=== PATIENT | female | born 1950 | race Two or more races ===

== ENCOUNTER 2024-01-23 16:25 | Emergency (ER) | payer OTHER ==
[~2024-01-23] VITALS: Ht 154.9 cm; Wt 64.4 kg
[2024-01-23] MEDS ORDERED: LANTUS SOL100 UNIT/1 (16:49)
[2024-01-23] MEDS ORDERED: LEVOTHYROXINE25 MCG PO (16:49)
[2024-01-23] MEDS ORDERED: TRIJARDY XR 5-1 EACH PO (16:51)
[2024-01-23] MEDS ORDERED: FENOFIBRATE50 MG PO (16:52)
[2024-01-23] MEDS ORDERED: COZAAR25 MG PO (16:52)
[2024-01-23] MEDS ORDERED: MONTELUKAST SODI4 MG PO (16:52)
[2024-01-23] MEDS ORDERED: KATERZIA1 MG/1 ML PO (16:53)
[2024-01-23] MEDS ORDERED: HUMALOG100 UNIT/2 SUBCUTANEO (16:53)
[2024-01-23] MEDS ORDERED: ZYRTEC10 M3 PO (16:53)
[2024-01-23] MEDS ORDERED: CEFTRIAXONE SODIUM 1,000 MG VIAL IV STA (18:15)
[2024-01-23] MEDS ORDERED: KETOROLAC TROMETHAMINE 15 MG VIAL IV STA (18:25)
[2024-01-23 18:53] LABS: HEMATOCRIT 32.6 % (36.0-45.00); HEMOGLOBIN 10.5 g/dL (12.0-15.00); MEAN CELL VOLUME 81.9 fL (80.00-100.00); MEAN CORPUSCULAR HEMOGLOBIN 26.4 pg (27.00-32.0); MEAN CORPUSCULAR HGB CONC 32.3 g/dl (32.0-36.0); PLATELET COUNT 399 K/uL (150-450); RED BLOOD COUNT 3.99 M/uL (4.00-6.00); RED CELL DISTRIBUTION WIDTH 14.6 % (11.5-14.5)
[2024-01-23 19:17] LABS: CALCIUM 9.8 mg/dL (8.5-10.1); CREATININE SERUM 1.37 mg/dL (0.55-1.02); GFR 37.79; POTASSIUM 4.37 mEq/L (3.5-5.1)
== END 2024-01-23 19:57 | disposition home or self-care (01) ==
LOC: ER 16:26
PROVIDERS: General Practice
DX: L03.213 Periorbital cellulitis (principal); Z88.2 Allergy status to sulfonamides
CPT/HCPCS: 36415; 96365; 99282; J0696; J1885